=== PATIENT | female | born 1955 | race African-American/Black ===

== ENCOUNTER 2017-03-18 20:05 | Observation (INO) | payer MEDICARE, OTHER ==
[2017-03-18 20:10] VITALS: BP 123/74; PULSE 87; O2SAT 100
[2017-03-18 20:16] VITALS: O2SAT 100
--- NOTE | 2017-03-18 20:20 | PD ---
HPI Chief Complaint: Fall Time Seen by Provider: 20:15 Travel History International Travel<30 days: No Contact w/Intl Traveler<30days: No Traveled to known affect area: No History of Present Illness HPI 61-year-old female that presents to the ED for evaluation of fall. Patient [place] today [place] the beach after she stepped on a fall at the beach and landed backwards on her head. Patient hit back of her head. Patient did not lose consciousness and apparently she was "dazed "by family, but she started to become worse and ambulance was called. Ambulance evaluated the patient and she was somewhat altered. Per ambulance she does seem to respond to stimuli and follows commands but is hard to assess was going on. Patient complains mainly of left-sided headache and neck pain. Patient was brought here no no backboard and we no cervical collar. Cervical collar was applied here immediately after she came to the ED. The patient her pain is 8 out of 10. She also points to her mid chest as area of pain which started after the fall. No sign of heart disease. She reports that she takes no blood thinners. She denies any pain anywhere else. Able to family with no issues. No lumbar or thoracic tenderness to palpation. Per ambulance she was ambulatory on scene. Family members here with her. No obvious sign of drug abuse or alcohol abuse. History again is somewhat limited because of patient's altered mental status. [facility] Past Medical History Seizures: Yes (on meds) Tetanus Vaccination: Unknown ?: Unknown Past Surgical History Surgical History: Unable to Obtain Social History Alcohol Use: No Tobacco Use: No Substance Use: No Allergies-Medications (Allergen,Severity, Reaction): Coded Allergies: No Known Allergies (Unverified , 03/18/17) Reported Meds & Prescriptions Reported Meds & Active Scripts Active Reported [phenytoin sod ext] 100 Mg PO TID Review of Systems ROS Limitations: Altered Mental Status Except as stated in HPI: all other systems reviewed are Neg Physical Exam Exam Limitations: Altered Mental Status Narrative GENERAL: SKIN: Warm and dry. HEAD: Atraumatic. Normocephalic. EYES: Pupils equal and round 4 mm reactive to light and accommodation. No scleral icterus. No injection or drainage. ENT: No nasal bleeding or discharge. Mucous membranes pink and moist. Tongue is midline. No uvula deviation. NECK: Trachea midline. No JVD. CARDIOVASCULAR: Regular rate and rhythm. No murmurs, S3, S4. RESPIRATORY: No accessory muscle use. Clear to auscultation. Breath sounds equal bilaterally. GASTROINTESTINAL: Abdomen soft, non-tender, nondistended. Hepatic and splenic margins not palpable. MUSCULOSKELETAL: Extremities without clubbing, cyanosis, or edema. No obvious deformities. Full range of motion of the upper and lower extremities bilaterally. 2+ pulses bilaterally. NEUROLOGICAL: Awake and alert. No obvious cranial nerve deficits. Motor grossly within normal limits. Five out of 5 muscle strength in the arms and legs. Normal speech. PSYCHIATRIC: Appropriate mood and affect; insight and judgment normal. Data Data Last Documented VS Vital Signs Date Time Temp Pulse Resp B/P Pulse Ox O2 Delivery O2 Flow Rate FiO2 03/18/17 22:11 99 Nasal Cannula 1 03/18/17 20:10 87 123/74 Orders Electrocardiogram (03/18/17 20:08) Complete Blood Count With Diff (03/18/17 20:08) Basic Metabolic Panel (Bmp) (03/18/17 20:08) Ckmb (Isoenzyme) Profile (03/18/17 20:08) Troponin I (03/18/17 20:08) Prothrombin Time / Inr (Pt) (03/18/17 20:08) Act Partial Throm Time (Ptt) (03/18/17 20:08) Urinalysis - C+S If Indicated (03/18/17 20:08) Magnesium (Mg) (03/18/17 20:08) Chest, Single Ap (03/18/17 20:08) Ct Brain W/O Iv Contrast(Rout) (03/18/17 20:08) Iv Access Insert/Monitor (03/18/17 20:08) Ecg Monitoring (03/18/17 20:08) Oximetry (03/18/17 20:08) Drug Screen, Random Urine (03/18/17 20:08) Alcohol (Ethanol) (03/18/17 20:08) Salicylates (Aspirin) (03/18/17 20:08) Tylenol (Acetaminophen) (03/18/17 20:08) Ct Cerv Spine W/O Contrast (03/18/17 ) Lactic Acid (03/18/17 20:12) Phenytoin (Dilantin) (03/18/17 21:10) CKMB (03/18/17 20:15) CKMB% (03/18/17 20:15) Ketorolac Inj (Toradol Inj) (03/18/17 22:00) Place In Observation (03/18/17 ) Vital Signs (Adult) Q4H (03/18/17 22:19) Neuro Checks Q4H (03/18/17 22:19) Activity Oob With Assistance (03/18/17 22:19) Papier Mache Molder / Telemetry .CONTINUOUS (03/18/17 22:19) Diet Heart Healthy (03/19/17 Breakfast) Sodium Chlor 0.9% 1000 Ml Inj (Ns 1000 M (03/18/17 22:19) Sodium Chloride 0.9% Flush (Ns Flush) (03/18/17 22:30) Sodium Chloride 0.9% Flush (Ns Flush) (03/19/17 09:00) Basic Metabolic Panel (Bmp) (03/19/17 06:00) Complete Blood Count With Diff (03/19/17 06:00) Pt Request For Service (03/18/17 22:19) Case Management Consult (03/18/17 22:19) Naloxone Inj (Narcan Inj) (03/18/17 22:30) ^ Seizure Precautions (03/18/17 22:20) Admit Order (Ed Use Only) (03/18/17 22:19) Labs Laboratory Tests Test 03/18/17 03/18/17 03/18/17 20:15 20:47 21:20 White Blood Count 11.2 TH/MM3 Red Blood Count 4.13 MIL/MM3 Hemoglobin 12.2 GM/DL Hematocrit 35.9 % Mean Corpuscular Volume 87.0 FL Mean Corpuscular Hemoglobin 29.5 PG Mean Corpuscular Hemoglobin 33.9 % Concent Red Cell Distribution Width 13.7 % Platelet Count 251 TH/MM3 Mean Platelet Volume 8.8 FL Neutrophils (%) (Auto) 65.5 % Lymphocytes (%) (Auto) 27.0 % Monocytes (%) (Auto) 5.7 % Eosinophils (%) (Auto) 0.8 % Basophils (%) (Auto) 1.0 % Neutrophils # (Auto) 7.4 TH/MM3 Lymphocytes # (Auto) 3.0 TH/MM3 Monocytes # (Auto) 0.6 TH/MM3 Eosinophils # (Auto) 0.1 TH/MM3 Basophils # (Auto) 0.1 TH/MM3 CBC Comment DIFF FINAL Differential Comment Prothrombin Time 11.3 SEC Prothromb Time International 1.0 RATIO Ratio Activated Partial 25.0 SEC Thromboplast Time Sodium Level 140 MEQ/L Potassium Level 3.3 MEQ/L Chloride Level 106 MEQ/L Carbon Dioxide Level 26.5 MEQ/L Anion Gap 8 MEQ/L Blood Urea Nitrogen 10 MG/DL Creatinine 1.19 MG/DL Estimat Glomerular Filtration 46 ML/MIN Rate Random Glucose 71 MG/DL Calcium Level 8.8 MG/DL Magnesium Level 1.8 MG/DL Total Creatine Kinase 137 U/L Creatine Kinase MB 1.0 NG/ML Troponin I LESS THAN 0.02 NG/ML Acetaminophen Level LESS THAN 2.0 MCG/ML Phenytoin (Dilantin) Level 28.9 MCG/ML Ethyl Alcohol Level LESS THAN 3 MG/DL Lactic Acid Level 0.8 mmol/L Salicylates Level LESS THAN 1.7 MG/DL Urine Opiates Screen NEG Urine Barbiturates Screen NEG Urine Amphetamines Screen NEG Urine Benzodiazepines Screen NEG Urine Cocaine Screen NEG Urine Cannabinoids Screen NEG MDM Medical Decision Making Medical Screen Exam Complete: Yes Emergency Medical Condition: Yes Medical Record Reviewed: Yes Interpretation(s) CBC & BMP Diagram 03/18/17 20:[address] 03/18/172007 Signed Impressions: Service Date/Time: February 20:26 - CONCLUSION: Negative trauma study. Henok Barbosa MD Chest X-Ray 03/18/172007 Signed Impressions: Service Date/Time: February 20:11 - CONCLUSION: No acute disease. Henok Barbosa MD Cervical Spine CT 03/18/17 Signed Impressions: Service Date/Time: February 20:26 - CONCLUSION: Negative trauma CT. Henok Barbosa MD phenytoin level elevated Troponin and CKMB negative tox negative Differential Diagnosis Altered mental status versus fall versus head injury versus ICH versus hematoma versus neck fracture versus chest pain versus ACS versus seizure Narrative Course 61-year-old female that presents to the ED for evaluation of head injury. Patient was properly examined and was found to have signs and symptoms of unclear etiology. Patient does appear to be altered. She didn't hit her head. Family mentions that she may have a history of seizures. Ambulance reports no seizure-like activity. She does appear to be somewhat altered in complaining of chest discomfort and left-sided pain. My attending Dr. Montes evaluated the patient with me and recommends altered mental status workup. Labs and imaging were ordered. EKG did not show any sign of acute disease. Labs and imaging showed no sign of acute disease other than elevated dilantin level. patient reassessed and still somewhat confused. Opening eyes and answering questions more appropriately but when told of her results she states that she has to take her of her mother, tells me that her mother 4 months ago. Definite concern for alteration, questionable whether related to head injury vs dilantin toxicity. They agree to admission. Case discussed with my attending who is in agreement with admission. [facility] paged as patient is [employer]. Dr Cadena agrees to admission. Diagnosis Primary Impression: Altered mental status Qualified Code: R41.82 - Altered mental status, unspecified altered mental status type Additional Impressions: Head injury, acute Qualified Code: S09.90XA - Head injury, acute, initial encounter Elevated Dilantin level Admitting Information Admitting Physician Requests: Observation Jonathon Casey Mar 18, 2017 20:20
--- NOTE | 2017-03-18 20:38 | RADRPT ---
EXAM DATE/TIME: 03/18/2017 20:26 [facility] COMPARISON: No previous studies available for comparison. INDICATIONS : Altered mental status. Patient fell in hole and hit left side of head. RADIATION DOSE: 45.84 CTDIvol (mGy) MEDICAL HISTORY : Seizures. SURGICAL HISTORY : None. ENCOUNTER: Initial ACUITY: 1 day PAIN SCALE: 10/10 LOCATION: Left cranial TECHNIQUE: Multiple contiguous axial images were obtained of the head. Using automated exposure control and adj ustment of the mA and/or kV according to patient size, radiation dose was kept as low as reasonably a chievable to obtain optimal diagnostic quality images. DICOM format image data is available electro nically for review and comparison. FINDINGS: CEREBRUM: The ventricles are normal for age. No evidence of midline shift, mass lesion, hemorrhage or acute in farction. No extra-axial fluid collections are seen. POSTERIOR FOSSA: The cerebellum and brainstem are intact. The 4th ventricle is midline. The cerebellopontine angle i s unremarkable. EXTRACRANIAL: The visualized portion of the orbits is intact. SKULL: The calvaria is intact. No evidence of skull fracture. CONCLUSION: Negative trauma study. Henok Barbosa MD on March 18, 2017 at 20:35 Board Certified Radiologist. This report was verified electronically.
--- NOTE | 2017-03-18 20:47 | RADRPT ---
EXAM DATE/TIME: 03/18/2017 20:26 [facility] COMPARISON: No previous studies available for comparison. INDICATIONS : Left side neck pain from fall. RADIATION DOSE: 42.82 CTDIvol (mGy) MEDICAL HISTORY : Seizures. SURGICAL HISTORY : None. ENCOUNTER: Initial ACUITY: 1 day PAIN SCALE: 10/10 LOCATION: neck TECHNIQUE: Volumetric scanning of the cervical spine was performed. Multiplanar reconstructions i n the sagittal, coronal and oblique axial planes were performed. Using automated exposure control a nd adjustment of the mA and/or kV according to patient size, radiation dose was kept as low as reason ably achievable to obtain optimal diagnostic quality images. DICOM format image data is available e lectronically for review and comparison. FINDINGS: The sagittal reconstructions demonstrate normal alignment and normal prevertebral soft tissues. The d ens is intact and there is a normal atlantoaxial relationship. Mild degenerative disc changes present at the C5-6 level. The axial images demonstrate that the vertebral bodies and posterior elements are intact. The soft ti ssues are within normal limits. There is no evidence of acute fracture or malalignment. There is a di sc osteophyte complex at C5-6 with mass effect on the anterior thecal sac. CONCLUSION: Negative trauma CT. Henok Barbosa MD on March 18, 2017 at 20:44 Board Certified Radiologist. This report was verified electronically.
--- NOTE | 2017-03-18 20:48 | RADRPT ---
EXAM DATE/TIME: 03/18/2017 20:11 [facility] COMPARISON: No previous studies available for comparison. INDICATIONS : Chest pain MEDICAL HISTORY : None. SURGICAL HISTORY : None. ENCOUNTER: Initial ACUITY: 1 day PAIN SCORE: Non-responsive. LOCATION: Bilateral chest FINDINGS: A single view of the chest demonstrates the lungs to be symmetrically aerated without evidence of mas s, infiltrate or effusion. The cardiomediastinal contours are unremarkable. Osseous structures are intact. CONCLUSION: No acute disease. Henok Barbosa MD on March 18, 2017 at 20:45 Board Certified Radiologist. This report was verified electronically.
[2017-03-18 20:59] LABS: AUTOMATED NEUTROPHIL # 7.4 TH/MM3 (1.8-7.7); BASOPHIL # 0.1 TH/MM3 (0-0.2); EOSINOPHIL # 0.1 TH/MM3 (0-0.4); EOSINOPHIL % 0.8 % (0.0-4.0); HEMATOCRIT 35.9 % (35.0-46.0); HEMO FLAGS DIFF FINAL; MEAN CORPUSCULAR HEMOGLOBIN 29.5 PG (27.0-34.0); MEAN CORPUSCULAR HGB CONC 33.9 % (32.0-36.0); MONO % 5.7 % (0.0-8.0); NEUT % 65.5 % (16.0-70.0); PLATELET COUNT 251 TH/MM3 (150-450); RED BLOOD COUNT 4.13 MIL/MM3 (4.00-5.30); RED CELL DISTRIBUTION WIDTH 13.7 % (11.6-17.2); WHITE BLOOD COUNT 11.2 TH/MM3 (4.0-11.0)
[2017-03-18 21:01] LABS: PROTHROMBIN TIME - PATIENT 11.3 SEC (9.8-11.6)
[2017-03-18] MEDS ORDERED: PHENYTOIN SOD EXT PO (21:13)
[2017-03-18 21:15] LABS: ANION GAP 8 MEQ/L (5-15); BICARBONATE 26.5 MEQ/L (21.0-32.0); BLOOD UREA NITROGEN 10 MG/DL (7-18); CHLORIDE 106 MEQ/L (98-107); GLOMERULAR FILTRATION RATE 46 ML/MIN (>89); MAGNESIUM 1.8 MG/DL (1.5-2.5); POTASSIUM 3.3 MEQ/L (3.5-5.1); SODIUM (NA) 140 MEQ/L (136-145)
[2017-03-18 21:20] LABS: CREATINE KINASE 137 U/L (26-192)
[2017-03-18 21:29] LABS: ACETAMINOPHEN LESS THAN 2.0 MCG/ML (10.0-30.0)
[2017-03-18 21:43] LABS: AMPHETAMINE, URINE NEG (NEG); BARBITURATES, URINE NEG (NEG); COCAINE, URINE NEG (NEG)
[2017-03-18] MEDS ORDERED: KETOROLAC TROMETHAMINE 30 MG/ML (IVP) VIAL IV PUSH ONE (22:00)
[2017-03-18] MEDS ORDERED: NALOXONE HCL 0.4 MG/ML AMP IV PRN (22:30)
[2017-03-18] MEDS ORDERED: SODIUM CHLORIDE 0.9% FLUSH 10 ML FLUSH IV FLUSH PRN (22:30)
[2017-03-18 23:39] LABS: BACTERIA, URINE OCC /hpf; BLOOD, URINE NEG (NEG); GLUCOSE,URINE NEG (NEG); KETONE, URINE NEG (NEG); RENAL EPITHELIAL CELLS 1 /hpf; SQUAMOUS EPITHELIAL CELL URINE 6 /hpf (0-5); URINE COLOR YELLOW (YELLW/STRAW)
[2017-03-18 23:40] LABS: COMMENT (UR) CULTURE INDICATED; CULTURE IF INDICATED CULTURE INDICATED; NITRITE,URINE POS (NEG)
[2017-03-18] MEDS: SODIUM CHLOR 0.9% 1000 ML INJ 1,000 ML IV SCH (23:50)
[2017-03-18 23:53] VITALS: BP 157/92; PULSE 76; O2SAT 100
[2017-03-19] VITALS (7 sets, daily range): BP systolic 132–172; BP diastolic 64–94; PULSE 65–73; RESP 18–20; TEMP 95.9–98.7; O2SAT 96–98
--- NOTE | 2017-03-19 05:01 | EKG ---
Date Performed: 03/18/2017 Time Performed: 20:07:04 PTAGE: 61 years EKG: Marked baseline artifact Sinus rhythm NORMAL ECG NO PREVIOUS TRACING DOCTOR: Carlos Romero Interpretating Date/Time 03/19/2017 04:59:37
[2017-03-19] MEDS ORDERED: POTASSIUM CHLORIDE 20 MEQ CONTROLLED RELEASE TAB PO ONE (07:30)
[2017-03-19] MEDS: cefTRIAXone INJ 1,000 MG in SODIUM CHLORIDE 0.9% INJ 100 ML IV SCH (08:18)
[2017-03-19] MEDS: SODIUM CHLOR 0.9% 1000 ML INJ 1,000 ML IV SCH ×2 (08:19→18:06)
[2017-03-19] MEDS: LACTOBACILLUS ACIDOPHILUS TAB PO SCH ×3 (08:19→18:06)
[2017-03-19] MEDS: SODIUM CHLORIDE 0.9% FLUSH 10 ML FLUSH IV FLUSH SCH ×2 (08:23→23:21)
[2017-03-19 09:39] LABS: AUTOMATED NEUTROPHIL # 4.9 TH/MM3 (1.8-7.7); BASOPHIL % 0.5 % (0.0-2.0); EOSINOPHIL # 0.1 TH/MM3 (0-0.4); EOSINOPHIL % 1.7 % (0.0-4.0); HEMATOCRIT 34.2 % (35.0-46.0); HEMO FLAGS DIFF FINAL; LYMPH % 26.2 % (9.0-44.0); MEAN CELL VOLUME 89.1 FL (80.0-100.0); MEAN CORPUSCULAR HEMOGLOBIN 29.7 PG (27.0-34.0); MEAN CORPUSCULAR HGB CONC 33.4 % (32.0-36.0); MONO % 6.9 % (0.0-8.0); NEUT % 64.7 % (16.0-70.0); PLATELET COUNT 191 TH/MM3 (150-450); RED BLOOD COUNT 3.84 MIL/MM3 (4.00-5.30); RED CELL DISTRIBUTION WIDTH 13.7 % (11.6-17.2); WHITE BLOOD COUNT 7.5 TH/MM3 (4.0-11.0)
[2017-03-19 10:21] LABS: BICARBONATE 24.1 MEQ/L (21.0-32.0); POTASSIUM 4.2 MEQ/L (3.5-5.1)
--- NOTE | 2017-03-19 13:19 | HHI.HP ---
[facility] Admission Diagnosis altered mental status, elevated phenytoin Diagnoses: Chief Complaint: Fall, altered mental status Travel History International Travel<30 Days: No Contact w/Intl Traveler <30 Da: No Traveled to Known Affected Are: No History of Present Illness Written by Andrew Quiñones, acting as scribe for Dr. Joaquin on 03/19/17 at 13:09. 61-year-old female with a past medical history of seizure disorder and HTN who presented after falling with altered mental status. Currently the patient's confusion has improved, currently oriented. However, she does not recall much about the events following her fall yesterday. She does state that she was at the beach yesterday. She states that she felt like she drink enough water. She does have a history of seizures for the last 5 years, and states that she still gets breakthrough seizures approximately once a month. She denies any urinary symptoms. She does complain of a headache at this time. She does have a history of high blood pressure, but does not recall what medication she is on for this. She states that her PCP has referred her to a neurologist for seizures, but she has been dealing with her mother's passing, and has put off seeing the neurologist. She has not tried ambulating yet this admission. Review of Systems Except as stated in HPI: all other systems reviewed are Neg Past Family Social History Past Medical History Seizure disorder Hypertension Past Surgical History Reported Medications Dilantin Blood pressure medication Allergies: Coded Allergies: No Known Allergies (Unverified , 03/18/17) Active Ordered Medications Current Medications Medications (Trade) Dose Ordered Sig/Mey Route Start Time Stop Time Status Last Admin (NS 1000 ml Inj) 1,000 ml @ 100 mls/hr Q10H IV 03/18/17 22:19 03/19/17 08:19 (NS Flush) 2 ml UNSCH PRN IV FLUSH 03/18/17 22:30 (NS Flush) 2 ml BID IV FLUSH 03/19/17 09:00 Naloxone HCl 0.4 mg 0.4 mg UNSCH PRN IV 03/18/17 22:30 (Rocephin Inj/NS Inj) 100 ml @ 200 mls/hr Q24H IV 03/19/17 08:00 03/19/17 08:18 (Lactinex) 1 tab TID PO 03/19/17 09:00 03/19/17 08:19 (Tylenol) 650 mg Q4H PRN PO 03/19/17 13:30 UNV (Catapres) 0.1 mg Q6H PRN PO 03/19/17 13:30 UNV Family History Diabetes mellitus Cancer Social History Denies any tobacco or drug use "Little" alcohol use Physical Exam Vital Signs Vital Signs Date Time Temp Pulse Resp B/P Pulse Ox O2 Delivery O2 Flow Rate FiO2 03/19/17 12:07 97.6 65 18 172/88 97 03/19/17 08:00 65 03/19/17 07:40 96.2 66 18 169/82 96 03/19/17 02:06 70 03/18/17 23:53 76 157/92 100 Room Air 03/18/17 22:11 99 Nasal Cannula 1 03/18/17 20:16 100 Room Air 03/18/17 20:10 87 123/74 100 Physical Exam GENERAL: Well-developed well-nourished. In no acute distress. SKIN: Warm and dry. No lesions noted. HEENT: Normocephalic. Pupils equal and round. Mucous membranes pink and moist. CARDIOVASCULAR: Regular rate and rhythm. No murmur appreciated. RESPIRATORY: No accessory muscle use. Clear to auscultation. Breath sounds equal bilaterally. GASTROINTESTINAL: Abdomen soft, non-tender, nondistended. Bowel sounds x4. MUSCULOSKELETAL: No obvious deformities. No clubbing or cyanosis. No edema. NEUROLOGICAL: Awake and alert. No focal neurological deficits. Moves upper and lower extremities spontaneously. Normal speech. PSYCHIATRIC: Appropriate mood and affect; insight and judgment normal. Laboratory Laboratory Tests Test 03/18/17 03/18/17 03/18/17 03/19/17 20:15 20:47 21:20 09:13 White Blood Count 11.2 7.5 Red Blood Count 4.13 3.84 Hemoglobin 12.2 11.4 Hematocrit 35.9 34.2 Mean Corpuscular Volume 87.0 89.1 Mean Corpuscular Hemoglobin 29.5 29.7 Mean Corpuscular Hemoglobin 33.9 33.4 Concent Red Cell Distribution Width 13.7 13.7 Platelet Count 251 191 Mean Platelet Volume 8.8 7.7 Neutrophils (%) (Auto) 65.5 64.7 Lymphocytes (%) (Auto) 27.0 26.2 Monocytes (%) (Auto) 5.7 6.9 Eosinophils (%) (Auto) 0.8 1.7 Basophils (%) (Auto) 1.0 0.5 Neutrophils # (Auto) 7.4 4.9 Lymphocytes # (Auto) 3.0 2.0 Monocytes # (Auto) 0.6 0.5 Eosinophils # (Auto) 0.1 0.1 Basophils # (Auto) 0.1 0.0 CBC Comment DIFF FINAL DIFF FINAL Differential Comment Prothrombin Time 11.3 Prothromb Time International 1.0 Ratio Activated Partial 25.0 Thromboplast Time Sodium Level 140 142 Potassium Level 3.3 4.2 Chloride Level 106 110 Carbon Dioxide Level 26.5 24.1 Anion Gap 8 8 Blood Urea Nitrogen 10 14 Creatinine 1.19 0.77 Estimat Glomerular Filtration 46 93 Rate Random Glucose 71 98 Calcium Level 8.8 8.3 Magnesium Level 1.8 Total Creatine Kinase 137 Creatine Kinase MB 1.0 Troponin I LESS THAN 0.02 Acetaminophen Level LESS THAN 2.0 Phenytoin (Dilantin) Level 28.9 Ethyl Alcohol Level LESS THAN 3 Lactic Acid Level 0.8 Urine Color YELLOW Urine Turbidity HAZY Urine pH 7.0 Urine Specific Avinger 1.012 Urine Protein TRACE Urine Glucose (UA) NEG Urine Ketones NEG Urine Occult Blood NEG Urine Nitrite POS Urine Bilirubin NEG Urine Urobilinogen LESS THAN 2.0 Urine Leukocyte Esterase LARGE Urine RBC LESS THAN 1 Urine WBC 12 Urine Squamous Epithelial 6 Cells Urine Renal Epithelial Cells 1 Urine Amorphous Sediment RARE Urine Bacteria OCC Microscopic Urinalysis Comment CULTURE INDICATED Salicylates Level LESS THAN 1.7 Urine Opiates Screen NEG Urine Barbiturates Screen NEG Urine Amphetamines Screen NEG Urine Benzodiazepines Screen NEG Urine Cocaine Screen NEG Urine Cannabinoids Screen NEG Date/Time Procedure Status Source Growth 03/18/17 21:20 Urine Culture Received Urine Clean Catch Pending Result Diagram: 03/19/1713 03/19/1713 Imaging Last Impressions Head CT 03/18/172007 Signed Impressions: Service Date/Time: February 20:26 - CONCLUSION: Negative trauma study. Henok Barbosa MD Chest X-Ray 03/18/172007 Signed Impressions: Service Date/Time: February 20:11 - CONCLUSION: No acute disease. Henok Barbosa MD Cervical Spine CT 03/18/17 Signed Impressions: Service Date/Time: February 20:26 - CONCLUSION: Negative trauma CT. Henok Barbosa MD Assessment and Plan Assessment and Plan 61-year-old female with a past medical history of seizure disorder and HTN who presented after falling with altered mental status Altered mental status/fall: Possibly secondary to dehydration or breakthrough seizure. Symptoms improving. Reviewed: Labs with signs of dehydration. Head CT negative. C-spine CT negative. UA with signs of infection. -IVF -PT eval -Tylenol as needed for pain -Monitor on telemetry -Neuro checks TIERRA: Creatinine 1.19, no previous labs for comparison. Creatinine improved to 0.77 with IVF. This could've contributed to altered mental status and fall. Seizure disorder: On Dilantin with slightly elevated phenytoin level, 28.9, hemoconcentration? Questionable breakthrough seizure, this could've contributed to altered mental status and fall. Hold Dilantin for now. Seizure precautions. Continue neurology follow-up. UTI: UA with evidence of UTI. Infection could've contributed to dehydration. Empiric IV Rocephin and follow up urine culture. History of hypertension: Reconcile and resume home BP meds. Clonidine as needed. DVT prophylaxis: SCDs This note was transcribed by patrick [Andrew Quiñones]. I, Dr. Santos Joaquin personally performed the history, physical exam, and medical decision making; and confirmed the accuracy of the information in the transcribed note. Authenticated by Dr. Santos Joaquin on 03/19/17 at 14:34. Discussed Condition With Patient Andrew Quiñones Mar 19, 2017 13:19 Santos Joaquin MD Mar 19, 2017 14:35
[2017-03-19] MEDS ORDERED: cloNIDine HCL 0.1 MG TAB PO PRN (13:30)
[2017-03-19] MEDS ORDERED: ACETAMINOPHEN 325 MG TAB PO PRN (13:30)
[2017-03-20 04:06] VITALS: BP 126/57; PULSE 66; RESP 20; TEMP 98.7; O2SAT 99
[2017-03-20 05:43] LABS: BICARBONATE 25.1 MEQ/L (21.0-32.0); POTASSIUM 3.7 MEQ/L (3.5-5.1)
[2017-03-20] MEDS: SODIUM CHLOR 0.9% 1000 ML INJ 1,000 ML IV SCH (07:40)
[2017-03-20 08:00] VITALS: BP 162/79; PULSE 60; RESP 16; TEMP 97.6; O2SAT 98
[2017-03-20] MEDS: LACTOBACILLUS ACIDOPHILUS TAB PO SCH (08:23)
[2017-03-20] MEDS: cefTRIAXone INJ 1,000 MG in SODIUM CHLORIDE 0.9% INJ 100 ML IV SCH (08:23)
[2017-03-20] MEDS: SODIUM CHLORIDE 0.9% FLUSH 10 ML FLUSH IV FLUSH SCH (08:23)
--- NOTE | 2017-03-20 08:28 | HHI.PR ---
Subjective Remarks Follow-up for fall. The patient is doing well today. She is asking go home. She is much better recollection of the events surrounding her fall. She states that she was at the beach with her family and was taking pictures of her grandkids, stepped backwards into a hole, and then fell backwards hitting her head. She states she's been ambulating here. No lightheadedness or dizziness. She denies any urinary complaints. Objective Vitals Vital Signs Date Time Temp Pulse Resp B/P Pulse Ox O2 Delivery O2 Flow Rate FiO2 03/20/17 04:06 98.7 66 20 126/57 99 03/19/17 23:08 98.7 68 20 132/64 97 03/19/17 20:01 98.0 73 18 172/85 98 03/19/17 16:03 95.9 65 18 162/94 97 03/19/17 12:07 97.6 65 18 172/88 97 I/O 03/19/17 03/19/17 03/19/17 03/20/17 03/20/17 03/20/17 07:00 15:00 23:00 07:00 15:00 23:00 Intake Total 200 ml Balance 200 ml Intake Oral 200 ml # Voids 1 # Bowel Movements 0 Result Diagram: 03/19/17 0913 03/20/17 0450 Imaging Last Impressions Head CT 03/18/172007 Signed Impressions: Service Date/Time: February 20:26 - CONCLUSION: Negative trauma study. Henok Barbosa MD Chest X-Ray 03/18/172007 Signed Impressions: Service Date/Time: February 20:11 - CONCLUSION: No acute disease. Henok Barbosa MD Cervical Spine CT 03/18/17 Signed Impressions: Service Date/Time: February 20:26 - CONCLUSION: Negative trauma CT. Henok Barbosa MD Objective Remarks GENERAL: Well-developed well-nourished. In no acute distress. SKIN: Warm and dry. No lesions noted. HEENT: Normocephalic. Pupils equal and round. EOMs intact. Mucous membranes pink and moist. CARDIOVASCULAR: Regular rate and rhythm. No murmur appreciated. RESPIRATORY: No accessory muscle use. Clear to auscultation. Breath sounds equal bilaterally. GASTROINTESTINAL: Abdomen soft, non-tender, nondistended. Bowel sounds x4. MUSCULOSKELETAL: No obvious deformities. No clubbing or cyanosis. No edema. NEUROLOGICAL: Awake and alert. No focal neurological deficits. Moves upper and lower extremities spontaneously. Normal speech. Strength 5/5. PSYCHIATRIC: Appropriate mood and affect; insight and judgment normal. A/P Assessment and Plan 61-year-old female with a past medical history of seizure disorder and HTN who presented after falling with altered mental status Altered mental status/fall: Fall sounds mechanical and during fall patient struck her head with subsequent confusion; possible postconcussion symptoms, symptoms improved. Reviewed: Labs with signs of dehydration. Head CT negative. C-spine CT negative. UA with signs of infection. -IVF -PT consulted, no restrictions -Tylenol as needed for pain -Monitor on telemetry -Neuro checks TIERRA: Creatinine 1.19, no previous labs for comparison. Creatinine improved to 0.77 with IVF. This could've contributed to altered mental status. Seizure disorder: On Dilantin with slightly elevated phenytoin level, 28.9, hemoconcentration?, Level now within normal limits. Resume Dilantin. Seizure precautions. Continue neurology follow-up. UTI: UA with evidence of UTI. Urine culture growing gram-negative rods. Received empiric IV Rocephin 1. Continue oral antibiotic course. History of hypertension: Reconcile and resume home BP meds. Clonidine as needed. DVT prophylaxis: SCDs Discharge Planning Discharge patient to home Condition on discharge: Improved Heart healthy Diet as tolerated Regular activity Rx written: Macrobid Follow-up with primary care physician Andrew Quiñones Mar 20, 2017 08:28
[2017-03-20] MEDS ORDERED: MACR100C2 PO (08:29)
[2017-03-20] MEDS ORDERED: NITROFURANTOIN MONOHYD MACROCR 100 MG CAP PO SCH (09:00)
[2017-03-20] MEDS ORDERED: PHENYTOIN SODIUM 100 MG CAP PO SCH (14:00)
== END 2017-03-20 09:53 | disposition home or self-care (01) ==
LOC: NEPC 20:05 → NEDA 22:21 → NEPFCDU 03-19 01:01
PROVIDERS: ADMIT Hospitalist; ATTEND Hospitalist
DX: R41.82 Altered mental status, unspecified (principal); S09.90XA Unspecified injury of head, initial encounter; S37.009A Unspecified injury of unspecified kidney, initial encounter; R07.9 Chest pain, unspecified; G40.909 Epilepsy, unspecified, not intractable, without status epilepticus; N39.0 Urinary tract infection, site not specified; I10 Essential (primary) hypertension; R51 Headache; M54.2 Cervicalgia; Z79.899 Other long term (current) drug therapy; W18.31XA Fall on same level due to stepping on an object, initial encounter; Y92.832 Beach as the place of occurrence of the external cause; A04.8 Other specified bacterial intestinal infections
CPT/HCPCS: 70450; 71010; 72125; 80048; 80185; 80307; 81001; 82550; 82552; 83605; 83735; 84484; 85025; 85610; 85730; 87077; 87086; 87186; 93005; 96374; 97161; 99285; G0378; G8987; G8988; J0696; J1885; J7030